=== PATIENT | male | born 1980 | race Caucasian/White ===

== ENCOUNTER 2016-11-15 11:51 | Emergency (ER) | payer MEDICAID ==
[2016-11-15 12:26] LABS: BASOPHIL# 0.1 X 10^3uL (0.0-0.1); EOSINOPHILS 1.9 % (0.0-6.0); EOSINOPHILS# 0.1 X 10^3uL (0.0-0.4); HEMATOCRIT 45.9 % (42.0-54.0); HEMOGLOBIN 16.1 g/dL (14.0-18.0); LYMPHOCYTES 25.5 % (20.0-40.0); LYMPHOCYTES# 1.7 X 10^3uL (0.8-3.8); MEAN CELL VOLUME 89.1 fL (80.0-100.0); MEAN CORPUSCULAR HEMOGLOBIN 31.2 pg (29.0-35.0); MEAN PLATELET VOLUME 9.8 fL (7.4-10.4); MONOCYTES 5.6 % (2.0-10.0); MONOCYTES# 0.4 X 10^3uL (0.2-1.0); NEUTROPHILS# 4.2 X 10^3uL (2.6-6.7); PLATELET COUNT 240 X 10^3uL (130-440); RED BLOOD COUNT 5.15 X 10^6uL (4.20-6.10); RED CELL DISTRIBUTION WIDTH 12.1 % (11.5-14.5); WHITE BLOOD COUNT 6.5 X 10^3uL (3.9-10.7)
[2016-11-15] MEDS ORDERED: KETOROLAC TROMETHAMINE 30 MG/ML VIAL ONE (12:31)
[2016-11-15 12:35] LABS: BLOOD UREA NITROGEN 14 mg/dL (9-20); CALCIUM 9.5 mg/dL (8.4-10.2); CHLORIDE 103 mmol/L (98-107); EST GLOMERULAR FILTRATION RATE > 60 mL/min; GLUCOSE 120 mg/dL (70-100); MAGNESIUM 2.5 mg/dL (1.6-2.3); POTASSIUM 4.4 mmol/L (3.5-5.1); SODIUM 143 mmol/L (137-145)
[2016-11-15 12:44] LABS: C-REACTIVE PROTEIN < 5.0 mg/L (<10.0); TROPONIN I < 0.012 ng/mL (0.00-0.034)
--- NOTE | 2016-11-15 12:50 | RADIOLOGY REPORT ---
HISTORY: Chest pain. COMPARISON: None. FINDINGS: 1 view of the chest obtained. There is no consolidation. There is no pleural effusion. There is no pneumothorax. The cardiomediastinal silhouette is normal. There is no abnormality of the pulmonary vessels. There is no focal lung parenchymal nodule. There is no bone lesion. IMPRESSION: Normal chest x-ray. Final Electronic Signature: This report was electronically signed by Sterling Galdamez MD on 11/15/2016 12: 47 PM. mindi /
--- NOTE | 2016-11-15 13:40 | ER PHYSICIAN DOCUMENTATION ---
Physician Documentation [facility] Name:Zaheer Parker Age:35 yrs Sex:Male :1980 Arrival Date:11/15/2016 Time:11:51 Bed1 Private MD: Carlitos Grossman Disposition: 11/15 13:21 Critical Care: not applicable. sc Disposition: 11/15/16 13:22 Discharged to Home/Self Care. Impression: Atypical Chest Pain, Pleuritic Chest Pain. - Condition is Good. - Discharge Instructions: CHEST PAIN Atypical - CHEST PAIN, Uncertain Cause, CHEST PAIN Pleurisy - PLEURISY. - Medical Reconciliation form form. - Follow up: Private Physician; When: As needed; Reason: Worsening of condition. - Problem is new. - Symptoms have improved. HPI: 13:23 This 35 yrs old Male presents to ER via Private Vehicle with complaints of sc Chest Pain. 13:23 The patient or guardian reports chest pain that is located primarily in the anterior sc chest wall. The pain does not radiate. The pain has moved or radiated since the onset. Associated signs and symptoms: The patient has no apparent associated signs or symptoms. The chest pain is described as sharp. Duration: The patient or guardian reports a single episode, that is still ongoing, wax and wane x two days. Modifying factors: The symptoms are alleviated by moving around helps. Severity of pain: At its worst the pain was moderate. Historical: - Allergies: No known drug Allergies; - Home Meds: 1. Vitamin D Oral - PMHx: None; - PSHx: None; - Ebola Screening: : Patient negative for fever greater than or equal to 101.5 degrees Fahrenheit, and additional compatible Ebola Virus Disease symptoms. Patient denies exposure to infectious person. Patient denies travel to an Ebola-affected area in the 21 days before illness onset. No symptoms or risks identified at this time. . - Immunization history: Flu Vaccine >1 year. - Social history: Smoking status: Patient states was never smoker of tobacco. Patient uses alcohol only on a social basis. Patient/guardian denies using street drugs, IV drugs, marijuana. ROS: 13:24 Constitutional: Negative for fever, chills, and weight loss. sc Eyes: Negative for injury, pain, redness, and discharge. ENT: Negative for injury, pain, and discharge. Neck: Negative for injury, pain, and swelling. Respiratory: Negative for shortness of breath, cough, wheezing, and pleuritic chest pain. Abdomen/GI: Negative for abdominal pain, nausea, vomiting, diarrhea, and constipation. Back: Negative for injury and pain. MS/Extremity: Negative for injury and deformity. Skin: Negative for injury, rash, and discoloration. 13:24 Neuro: Negative for headache, weakness, numbness, tingling, and seizure. sc 13:24 Cardiovascular: Positive for chest pain. Exam: Constitutional: This is a well developed, well nourished patient who is awake, alert, and in no acute distress. Head/Face: Normocephalic, atraumatic. Eyes: Pupils equal round and reactive to light, extra-ocular motions intact. Lids and lashes normal. Conjunctiva and sclera are non-icteric and not injected. Cornea within normal limits. Periorbital areas with no swelling, redness, or edema. ENT: Nares patent. No nasal discharge, no septal abnormalities noted. Tympanic membranes are normal and external auditory canals are clear. Oropharynx with no redness, swelling, or masses, exudates, or evidence of obstruction, uvula midline. Mucous membranes moist. Neck: Trachea midline, no thyromegaly or masses palpated, and no cervical lymphadenopathy. Supple, full range of motion without nuchal rigidity, or vertebral point tenderness. No meningismus. Chest/axilla: Normal chest wall appearance and motion. Nontender with no deformity. No lesions are appreciated. Back: No spinal tenderness. No costovertebral tenderness. Full range of motion. 13:24 Skin: Warm, dry with normal turgor. Normal color with no rashes, no lesions, and no sc evidence of cellulitis. 13:24 Cardiovascular: Rate: normal, Rhythm: regular. 13:24 Respiratory: the patient does not display signs of respiratory distress, Respirations: normal, Breath sounds: are normal, clear throughout. Vital Signs: 11:53 BP 150 / 87; Pulse 76; Resp 17; Temp 98.2; Pulse Ox 95% on R/A; Weight 74.84 kg; Height rh 6 ft. 0 in. (182.88 cm); Pain 2/10; 13:39 BP 132 / 85; Pulse 70; Resp 16; Pulse Ox 94% on R/A; [facility] 11:53 Body Mass Index 22.38 (74.84 kg, 182.88 cm) rh MDM: 12:00 Patient medically screened. nc 13:22 Patient took aspirin within the past 24 hours. Patient did not receive fibrinolytic due sc to na. Data reviewed: vital signs, nurses notes, lab test result(s), EKG, radiologic studies. Data interpreted: laboratory monitor: rate is 80 beats/min, rhythm is normal sinus rhythm. ECG:. 13:24 Differential diagnosis: acute myocardial infarction, acute pericarditis, anxiety, sc coronary artery disease chest wall pain. Data reviewed: and as a result, I will discharge patient. 11/15 12:33 Order name: DDIMER; Complete Time: 13:21 EDAZ 11/15 12:44 Interpretation: Normal. nc 11/15 12:34 Order name: CBC AUTO DIF, MDIF/RMOR IF IND; Complete Time: 13:21 EDAZ 11/15 12:44 Interpretation: Normal. nc 11/15 12:45 Order name: BASIC METABOLIC PANEL; Complete Time: 13:21 EDAZ 11/15 12:45 Order name: MAGNESIUM; Complete Time: 13:21 EDAZ 11/15 12:45 Order name: C-REACTIVE PROTEIN; Complete Time: 13:21 EDAZ 11/15 12:45 Order name: TROPONIN I; Complete Time: 13:21 EDAZ 11/15 12:51 Order name: CHEST; SINGLE VIEW [id number]; Complete Time: 13:21 EDAZ 11/15 13:21 Interpretation: Normal. nc 11/15 12:06 Order name: 12-lead EKG; Complete Time: 12:23 nc 11/15 12:06 Order name: Iv Saline Lock; Complete Time: 12:17 nc EC:22 Rate is 80 beats/min. Rhythm is regular. AL interval is normal. QRS interval is normal. nc QT interval is normal. No ST changes noted. Clinical impression: LVH. Interpreted by me. Reviewed by me. Dispensed Medications: 12:19 Drug: Toradol 30 mg; Route: IVP; Site: left antecubital; rh 13:38 Follow up: Response: No adverse reaction; No change in condition [facility] Signatures: Tessa Mirza RN RN [facility] Carlitos Gar MD MD nc Rosangela Rodriguez
--- NOTE | 2016-11-15 13:40 | ER NURSING DOCUMENTATION ---
Nurse's Notes [facility] Name:Zaheer Parker Age:35 yrs Sex:Male :1980 Arrival Date:11/15/2016 Time:11:51 Bed1 Private MD: Diagnosis:Atypical Chest Pain;Pleuritic Chest Pain Presentation: 11/15 11:53 Acuity: TIMOTHY 3 rh 11:54 Presenting complaint: Patient states: loss of appetite and pain in his chest when he sc1 takes a deep breath. Pt. has had a a pain in his chest for approx. 2 days. Transition of care: Camp. AIR CAT ACTIVATION no. Asprin Given n/a. Notified ED Physician of patient's arrival and CC Dr. Gar notified. 11:54 Method Of Arrival: Private Vehicle sc1 Triage Assessment: 12:00 General: Appears in no apparent distress, well developed, well nourished, well groomed, sc1 Behavior is cooperative, pleasant. Pain: Complains of pain in left breast. Cardiovascular: No deficits noted. Historical: - Allergies: No known drug Allergies; - Home Meds: 1. Vitamin D Oral - PMHx: None; - PSHx: None; - Ebola Screening: : Patient negative for fever greater than or equal to 101.5 degrees Fahrenheit, and additional compatible Ebola Virus Disease symptoms. Patient denies exposure to infectious person. Patient denies travel to an Ebola-affected area in the 21 days before illness onset. No symptoms or risks identified at this time. . - Immunization history: Flu Vaccine >1 year. - Social history: Smoking status: Patient states was never smoker of tobacco. Patient uses alcohol only on a social basis. Patient/guardian denies using street drugs, IV drugs, marijuana. Screenin:01 Infectious Disease Risk None. Abuse screen: Denies threats or abuse. Nutritional sc1 screening: No deficits noted. Vital Signs: 11:53 BP 150 / 87; Pulse 76; Resp 17; Temp 98.2; Pulse Ox 95% on R/A; Weight 74.84 kg; Height rh 6 ft. 0 in. (182.88 cm); Pain 2/10; 13:39 BP 132 / 85; Pulse 70; Resp 16; Pulse Ox 94% on R/A; sc1 11:53 Body Mass Index 22.38 (74.84 kg, 182.88 cm) rh ED Course: 11:52 Patient arrived in ED. ama 11:53 Triage completed. rh 11:54 Tessa Mirza, RN is Primary Nurse. va1 11:54 Valuables Remains with patient Patient has correct armband on for positive rh identification. Placed in gown. Bed in low position. Call light in reach. Side rails up X 1. 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 Pulse ox on. NIBP on. 12:00 Carlitos Gar MD is Attending Physician. va 12:15 Inserted peripheral IV: 20 gauge in left antecubital area and blood collected. st 12:34 Port Xray Completed. pm1 13:38 Discontinued lock intact, bleeding controlled, pressure dressing applied, No sc1 redness/swelling at site. Administered Medications: 12:19 Drug: Toradol 30 mg; Route: IVP; Site: left antecubital; 13:38 Follow up: Response: No adverse reaction; No change in condition [facility] [place] Outcome: 13:22 Discharge ordered by . va 13:39 Discharged to home ambulatory. [facility] [place] [place] 13:39 Condition: stable 13:39 Discharge instructions given to patient, Instructed on discharge instructions, follow up and referral plans. Demonstrated understanding of instructions. 13:39 Patient left the ED. [facility] [place] [place] 06 09:07 Discharge F/U Call: Unable to reach: no answer st Signatures: Natalee Bryant RN RN st Campbell, Sandy, RN RN va1 Carlitos Gar MD MD va Alberto Talley 1 Ramsey Willingham, Reg Reg Rosangela Sal rh
== END 2016-11-15 13:40 | disposition home or self-care (01) ==
LOC: ER 11:51
DX: R07.81 Pleurodynia (principal); R07.89 Other chest pain
CPT/HCPCS: 71010; 80048; 83735; 84484; 85025; 85379; 86140; 93005; 96374; 99284; J1885